=== PATIENT | male | born 1970 | race Caucasian/White ===

== ENCOUNTER 2021-03-15 04:11 | Emergency (ER) | payer MEDICAID, SELFPAY ==
[2021-03-15 04:14] VITALS: BP 144/98; PULSE 82; RESP 14; TEMP 36.6; O2SAT 100; BMI 24.4
--- NOTE | 2021-03-15 04:15 | XRR_ITS ---
PROCEDURE INFORMATION: Exam: XR Chest Exam date and time: 03/15/2021 4:15 AM Age: 50 years old Clinical indication: Patient HX: AMS. Unresponsive. Possible ETOH. Unable to obtain history. TECHNIQUE: Imaging protocol: XR of the chest. Views: 1 view. COMPARISON: CR Chest 1 view [id number] 11/14/2017 3:35 PM FINDINGS: Lungs: Unremarkable. No consolidation. Pleural spaces: Unremarkable. No pleural effusion. No pneumothorax. Heart/Mediastinum: Unremarkable. No cardiomegaly. Bones/joints: Unremarkable. XR/XR chest 1V portable [id number] IMPRESSION: No acute disease.
--- NOTE | 2021-03-15 04:15 | CTR_ITS ---
PROCEDURE INFORMATION: Exam: CT Head Without Contrast Exam date and time: 03/15/2021 4:15 AM Age: 50 years old Clinical indication: Altered mental status/memory loss; Patient HX: AMS. Unresponsive. Possible ETOH. TECHNIQUE: Imaging protocol: Computed tomography of the head without contrast. Radiation optimization: All CT scans at this facility use at least one of these dose optimization techniques: automated exposure control; mA and/or kV adjustment per patient size (includes targeted exams where dose is matched to clinical indication); or iterative reconstruction. COMPARISON: CR Cervical Spine AP/Lat* [id number] 11/14/2017 3:35 PM RADIATION DOSE METRICS: Total DLP (mGy-cm): 1127.79 FINDINGS: Brain: No acute infarct or hemorrhage. Cerebral ventricles: No ventriculomegaly. Paranasal sinuses: Mucous retention cyst in the right maxillary sinus. Mastoid air cells: Visualized mastoid air cells are clear. Bones/joints: No calvarial or skull base fracture. Soft tissues: Unremarkable. CT/CT head wo con* [id number] IMPRESSION: 1. No calvarial or skull base fracture. 2. No acute infarct or hemorrhage. Radiation Dose CTDIVOL = (mGy): DLP = 1127.79 (mGy-cm)
--- NOTE | 2021-03-15 04:16 | ECG_ITS ---
[facility] Test Date: 2021-03-15 Pat Name: Perez Galeano Department: Room: Gender: Male [employer] Supervisor: : [id number] Requested By: Qasim Velazquez Order Number: [id number] Reading MD: TETO BLACKWOOD Measurements Intervals [place] Rate: 82 P: 85 PA: 131 QRS: 78 QRSD: 90 T: 78 QT: 365 QTc: 428 Interpretive Statements SINUS RHYTHM RIGHT ATRIAL ENLARGEMENT [0.3mV P WAVE] POSSIBLE LEFT ATRIAL ENLARGEMENT [-0.1mV P WAVE IN V1/V2] No previous ECG available for comparison Electronically Signed On 03-16-2021 20:30:00 CDT by TETO BLACKWOOD [email or web address] regional medical [email or web address] Systemscleveland clinic [email or web address].[email or web address]/[id number]
[2021-03-15 04:18] VITALS: PULSE 82; RESP 16; O2SAT 99
[2021-03-15] MEDS: ondansetron 2 mg/ML SDV 2 mL 4 MG IVP (04:28)
[2021-03-15] MEDS: sodium chloride 0.9% 1,000 ML 999 ML IV (04:28)
--- NOTE | 2021-03-15 04:32 | ED_ITS ---
Documented by User: Qasim Velazquez MD 03/15/21 04:36 HPI - Nausea/Vomiting/Diarrhea General: Chief complaint: Nausea/Vomiting/Diarrhea Stated complaint: n/v/lethargic Time Seen by Provider: 03/15/21 04:15 Source: patient and EMS Mode of arrival: EMS Limitations: altered mental status History of Present Illness: HPI Narrative: 50-year-old male that was in a hotel with his girlfriend and she called EMS because he had became unresponsive with vomiting. EMS states they arrived there is multiple empty alcohol bottles in the room. He states he will wake to sternal rub. I did wake him up and he is able to tell me his name and the year and where he was at but he is lethargic. He has had no vomiting here. Denies any recent fevers. Review of Systems General: Reports: ROS unobtainable due to mental status Course Vital Signs: Vital signs: Vital Signs Temperature 97.8 F 03/15/21 04:14 Pulse Rate 86 03/15/21 08:23 Respiratory Rate 15 03/15/21 08:23 Blood Pressure 126/80 03/15/21 08:23 Pulse Oximetry 97 03/15/21 08:23 MDM - Nausea/Vomiting/Diarrhea Lab Data: Labs: Lab Results 03/15/21 03/15/21 03/15/21 Range/Units 04:59 04:59 04:59 WBC Cancelled Corrected WBC Cancelled RBC Cancelled Hgb Cancelled Hct Cancelled MCV Cancelled MCH Cancelled MCHC Cancelled RDW Cancelled Plt Count Cancelled MPV Cancelled Gran % Cancelled Neut % (Auto) Cancelled Lymph % (Auto) Cancelled [place] % (Auto) Cancelled Eos % (Auto) Cancelled Baso % (Auto) Cancelled Neut # (Auto) Cancelled Lymph # (Auto) Cancelled [place] # (Auto) Cancelled Eos # (Auto) Cancelled Baso # (Auto) Cancelled Absolute Gran (aut o) Cancelled Nucleated RBC % (a uto) Cancelled Nucleated RBCs # Cancelled PT (12.1-14.9) SECO NDS INR (0.8-1.2) Sodium Cancelled Potassium Cancelled Chloride Cancelled Carbon Dioxide Cancelled Anion Gap Cancelled BUN Cancelled Creatinine Cancelled GFR Calculation Cancelled Glucose Cancelled Calculated Osmolal ity Cancelled Calcium Cancelled Total Bilirubin Cancelled AST Cancelled ALT Cancelled Alkaline Phosphata se Cancelled Troponin T Baselin e Cancelled Total Protein Cancelled Albumin Cancelled Globulin Cancelled TSH Cancelled Urine Color (Yellow) Urine Appearance (CLEAR) Urine pH (5-7) Ur Specific Gravit y (1.005-1.030) Urine Protein (Negative) Urine Glucose (UA) (Normal) Urine Ketones (Negative) Urine Blood (Negative) Urine Nitrate (Negative) Urine Bilirubin (Negative) Urine Urobilinogen (Negative) mg/dL Ur Leukocyte Alicia ase (Negative) Urine Opiates Scre en (Negative) ng/mL Ur Barbiturates Sc reen (Negative) ng/mL Ur Phencyclidine S crn (Negative) ng/mL Ur Amphetamines Sc reen (Negative) ng/mL U Benzodiazepines Scrn (Negative) ng/mL Urine Cocaine Scre en (Negative) ng/mL U Marijuana (THC) Screen (Negative) ng/mL Ethyl Alcohol Cancelled 03/15/21 03/15/21 03/15/21 Range/Units 04:59 04:59 05:30 WBC Corrected WBC RBC Hgb Hct MCV MCH MCHC RDW Plt Count MPV Gran % Neut % (Auto) Lymph % (Auto) [place] % (Auto) Eos % (Auto) Baso % (Auto) Neut # (Auto) Lymph # (Auto) [place] # (Auto) Eos # (Auto) Baso # (Auto) Absolute Gran (aut o) Nucleated RBC % (a uto) Nucleated RBCs # PT 13.90 (12.1-14.9) SECO NDS INR 1.04 (0.8-1.2) Sodium Potassium Chloride Carbon Dioxide Anion Gap BUN Creatinine GFR Calculation Glucose Calculated Osmolal ity Calcium Total Bilirubin AST ALT Alkaline Phosphata se Troponin T Baselin e Total Protein Albumin Globulin TSH Urine Color Yellow (Yellow) Urine Appearance Clear (CLEAR) Urine pH 5 (5-7) Ur Specific Gravit y 1.025 (1.005-1.030) Urine Protein Neg (Negative) Urine Glucose (UA) Norm (Normal) Urine Ketones 1+ H (Negative) Urine Blood Neg (Negative) Urine Nitrate Negative (Negative) Urine Bilirubin 1+ H (Negative) Urine Urobilinogen Norm (Negative) mg/dL Ur Leukocyte Alicia ase Negative (Negative) Urine Opiates Scre en Positive H (Negative) ng/mL Ur Barbiturates Sc reen Negative (Negative) ng/mL Ur Phencyclidine S crn Negative (Negative) ng/mL Ur Amphetamines Sc reen Positive H (Negative) ng/mL U Benzodiazepines Scrn Negative (Negative) ng/mL Urine Cocaine Scre en Negative (Negative) ng/mL U Marijuana (THC) Screen Positive H (Negative) ng/mL Ethyl Alcohol 03/15/21 03/15/21 03/15/21 Range/Units 05:30 05:54 05:54 WBC 19.1 H Corrected WBC RBC 4.77 Hgb 14.5 Hct 47.3 MCV 99.2 H MCH 30.4 MCHC 30.7 RDW 13.9 Plt Count 321 MPV 9.2 Gran % Neut % (Auto) 83.1 Lymph % (Auto) 6.8 [place] % (Auto) 8.2 Eos % (Auto) 0.9 Baso % (Auto) 0.6 Neut # (Auto) 15.83 H Lymph # (Auto) 1.3 [place] # (Auto) 1.6 H Eos # (Auto) 0.2 Baso # (Auto) 0.1 Absolute Gran (aut o) Nucleated RBC % (a uto) 0 Nucleated RBCs # 0.0 PT (12.1-14.9) SECO NDS INR (0.8-1.2) Sodium 139 Potassium 4.8 Chloride 106 Carbon Dioxide 23 Anion Gap 14.8 BUN 22 H Creatinine 0.7 GFR Calculation 118.9 Glucose 95 Calculated Osmolal ity 291 Calcium 7.7 L Total Bilirubin 0.6 AST 12 ALT 12 Alkaline Phosphata se 69 Troponin T Baselin e 13 Total Protein 6.5 L Albumin 3.7 Globulin 2.8 TSH 0.63 Urine Color (Yellow) Urine Appearance (CLEAR) Urine pH (5-7) Ur Specific Gravit y (1.005-1.030) Urine Protein (Negative) Urine Glucose (UA) (Normal) Urine Ketones (Negative) Urine Blood (Negative) Urine Nitrate (Negative) Urine Bilirubin (Negative) Urine Urobilinogen (Negative) mg/dL Ur Leukocyte Alicia ase (Negative) Urine Opiates Scre en (Negative) ng/mL Ur Barbiturates Sc reen (Negative) ng/mL Ur Phencyclidine S crn (Negative) ng/mL Ur Amphetamines Sc reen (Negative) ng/mL U Benzodiazepines Scrn (Negative) ng/mL Urine Cocaine Scre en (Negative) ng/mL U Marijuana (THC) Screen (Negative) ng/mL Ethyl Alcohol < 10 EKG Data^: EKG 1: Attestation: I personally reviewed and interpreted this EKG as follows: EKG interpretation date: 03/15/21 EKG interpretation time: 04:29 Interpretation: Normal sinus rhythm heart rate [address] or T wave abnormalities qrs 90 QTC 404 Discharge Plan Discharge Patient Disposition: Home Clinical Impression: Nausea & vomiting Condition: Stable Prescriptions: New Zofran 4 mg tablet 4 mg PO Q6H PRN (Reason: nausea and vomiting) Qty: 20 RF: 0 Discharge Orders: Discharge ED (Routine); Ordered 03/15/21 Ordered By: Morris Santa Discharge Diet: Clear Liquid Discharge Activity: Resume usual activity Patient Instructions: Opioid Safety Sign Out Sign Out Data: Patient Sign Out occurred on 03/15/21 at 06:08. Patient's care was discussed, and care was transferred from to Morris Santa DO. Coding Level of Care Code ED Senior Sales Operations Analyst for [employer]g [employer]wd Documented by User: Morris Santa DO 03/15/21 08:25 HPI - Nausea/Vomiting/Diarrhea General: Chief complaint: Nausea/Vomiting/Diarrhea Stated complaint: n/v/lethargic Time Seen by Provider: 03/15/21 04:15 Course Vital Signs: Vital signs: Vital Signs Temperature 97.8 F 03/15/21 04:14 Pulse Rate 86 03/15/21 08:23 Respiratory Rate 15 03/15/21 08:23 Blood Pressure 126/80 03/15/21 08:23 Pulse Oximetry 97 03/15/21 08:23 MDM - Nausea/Vomiting/Diarrhea MDM Narrative: Medical decision making narrative: Nausea and vomiting improved drug screen positive. Improved with fluids. Will discharge home with Zofran avoid drug use clear liquid diet 24 to 48 hours return if has problems. Lab Data: Labs: Lab Results 03/15/21 03/15/21 03/15/21 Range/Units 04:59 04:59 04:59 WBC Cancelled Corrected WBC Cancelled RBC Cancelled Hgb Cancelled Hct Cancelled MCV Cancelled MCH Cancelled MCHC Cancelled RDW Cancelled Plt Count Cancelled MPV Cancelled Gran % Cancelled Neut % (Auto) Cancelled Lymph % (Auto) Cancelled [place] % (Auto) Cancelled Eos % (Auto) Cancelled Baso % (Auto) Cancelled Neut # (Auto) Cancelled Lymph # (Auto) Cancelled [place] # (Auto) Cancelled Eos # (Auto) Cancelled Baso # (Auto) Cancelled Absolute Gran (aut o) Cancelled Nucleated RBC % (a uto) Cancelled Nucleated RBCs # Cancelled PT (12.1-14.9) SECO NDS INR (0.8-1.2) Sodium Cancelled Potassium Cancelled Chloride Cancelled Carbon Dioxide Cancelled Anion Gap Cancelled BUN Cancelled Creatinine Cancelled GFR Calculation Cancelled Glucose Cancelled Calculated Osmolal ity Cancelled Calcium Cancelled Total Bilirubin Cancelled AST Cancelled ALT Cancelled Alkaline Phosphata se Cancelled Troponin T Baselin e Cancelled Total Protein Cancelled Albumin Cancelled Globulin Cancelled TSH Cancelled Urine Color (Yellow) Urine Appearance (CLEAR) Urine pH (5-7) Ur Specific Gravit y (1.005-1.030) Urine Protein (Negative) Urine Glucose (UA) (Normal) Urine Ketones (Negative) Urine Blood (Negative) Urine Nitrate (Negative) Urine Bilirubin (Negative) Urine Urobilinogen (Negative) mg/dL Ur Leukocyte Alicia ase (Negative) Urine Opiates Scre en (Negative) ng/mL Ur Barbiturates Sc reen (Negative) ng/mL Ur Phencyclidine S crn (Negative) ng/mL Ur Amphetamines Sc reen (Negative) ng/mL U Benzodiazepines Scrn (Negative) ng/mL Urine Cocaine Scre en (Negative) ng/mL U Marijuana (THC) Screen (Negative) ng/mL Ethyl Alcohol Cancelled 03/15/21 03/15/21 03/15/21 Range/Units 04:59 04:59 05:30 WBC Corrected WBC RBC Hgb Hct MCV MCH MCHC RDW Plt Count MPV Gran % Neut % (Auto) Lymph % (Auto) [place] % (Auto) Eos % (Auto) Baso % (Auto) Neut # (Auto) Lymph # (Auto) [place] # (Auto) Eos # (Auto) Baso # (Auto) Absolute Gran (aut o) Nucleated RBC % (a uto) Nucleated RBCs # PT 13.90 (12.1-14.9) SECO NDS INR 1.04 (0.8-1.2) Sodium Potassium Chloride Carbon Dioxide Anion Gap BUN Creatinine GFR Calculation Glucose Calculated Osmolal ity Calcium Total Bilirubin AST ALT Alkaline Phosphata se Troponin T Baselin e Total Protein Albumin Globulin TSH Urine Color Yellow (Yellow) Urine Appearance Clear (CLEAR) Urine pH 5 (5-7) Ur Specific Gravit y 1.025 (1.005-1.030) Urine Protein Neg (Negative) Urine Glucose (UA) Norm (Normal) Urine Ketones 1+ H (Negative) Urine Blood Neg (Negative) Urine Nitrate Negative (Negative) Urine Bilirubin 1+ H (Negative) Urine Urobilinogen Norm (Negative) mg/dL Ur Leukocyte Alicia ase Negative (Negative) Urine Opiates Scre en Positive H (Negative) ng/mL Ur Barbiturates Sc reen Negative (Negative) ng/mL Ur Phencyclidine S crn Negative (Negative) ng/mL Ur Amphetamines Sc reen Positive H (Negative) ng/mL U Benzodiazepines Scrn Negative (Negative) ng/mL Urine Cocaine Scre en Negative (Negative) ng/mL U Marijuana (THC) Screen Positive H (Negative) ng/mL Ethyl Alcohol 03/15/21 03/15/21 03/15/21 Range/Units 05:30 05:54 05:54 WBC 19.1 H Corrected WBC RBC 4.77 Hgb 14.5 Hct 47.3 MCV 99.2 H MCH 30.4 MCHC 30.7 RDW 13.9 Plt Count 321 MPV 9.2 Gran % Neut % (Auto) 83.1 Lymph % (Auto) 6.8 [place] % (Auto) 8.2 Eos % (Auto) 0.9 Baso % (Auto) 0.6 Neut # (Auto) 15.83 H Lymph # (Auto) 1.3 [place] # (Auto) 1.6 H Eos # (Auto) 0.2 Baso # (Auto) 0.1 Absolute Gran (aut o) Nucleated RBC % (a uto) 0 Nucleated RBCs # 0.0 PT (12.1-14.9) SECO NDS INR (0.8-1.2) Sodium 139 Potassium 4.8 Chloride 106 Carbon Dioxide 23 Anion Gap 14.8 BUN 22 H Creatinine 0.7 GFR Calculation 118.9 Glucose 95 Calculated Osmolal ity 291 Calcium 7.7 L Total Bilirubin 0.6 AST 12 ALT 12 Alkaline Phosphata se 69 Troponin T Baselin e 13 Total Protein 6.5 L Albumin 3.7 Globulin 2.8 TSH 0.63 Urine Color (Yellow) Urine Appearance (CLEAR) Urine pH (5-7) Ur Specific Gravit y (1.005-1.030) Urine Protein (Negative) Urine Glucose (UA) (Normal) Urine Ketones (Negative) Urine Blood (Negative) Urine Nitrate (Negative) Urine Bilirubin (Negative) Urine Urobilinogen (Negative) mg/dL Ur Leukocyte Alicia ase (Negative) Urine Opiates Scre en (Negative) ng/mL Ur Barbiturates Sc reen (Negative) ng/mL Ur Phencyclidine S crn (Negative) ng/mL Ur Amphetamines Sc reen (Negative) ng/mL U Benzodiazepines Scrn (Negative) ng/mL Urine Cocaine Scre en (Negative) ng/mL U Marijuana (THC) Screen (Negative) ng/mL Ethyl Alcohol < 10 Discharge Plan Discharge Patient Disposition: Home Clinical Impression: Nausea & vomiting Condition: Stable Prescriptions: New Zofran 4 mg tablet 4 mg PO Q6H PRN (Reason: nausea and vomiting) Qty: 20 RF: 0 Discharge Orders: Discharge ED (Routine); Ordered 03/15/21 Ordered By: Morris Santa Discharge Diet: Clear Liquid Discharge Activity: Resume usual activity Patient Instructions: Opioid Safety Sign Out Sign Out Data: Patient Sign Out occurred on 03/15/21 at 06:08. Patient's care was discussed, and care was transferred from to Morris Santa DO. Coding Level of Care Code ED Senior Sales Operations Analyst for Luis Benitez
[2021-03-15 05:11] LABS: Add Urine Microscopic? NO; Charge for UA Resulting for Rev
[2021-03-15 05:13] LABS: Bilirubin Urine 1+ (Negative); Blood Urine Neg (Negative); Glucose Urine UA Norm (Normal); Ketones Urine 1+ (Negative); Leukocyte Esterase Urine Negative (Negative); Nitrate Urine Negative (Negative); Protein Urine Neg (Negative); Specific Gravity, Urine 1.025 (1.005-1.030); Urine Appearance Clear (CLEAR); Urine Color Yellow (Yellow); Urobilinogen Urine Norm (Negative); pH Urine 5 (5-7)
[2021-03-15 05:22] LABS: Amphetamines Screen Urine Positive (Negative); Barbiturates Screen Urine Negative (Negative); Benzodiazepines Screen Urine Negative (Negative); Cocaine Screen Urine Negative (Negative); Opiate Screen Urine Positive (Negative); PCP Screen Urine Negative (Negative); THC Screen Urine Positive (Negative)
--- NOTE | 2021-03-15 05:25 | CTR_ITS ---
PROCEDURE INFORMATION: Exam: CT Abdomen And Pelvis With Contrast Exam date and time: 03/15/2021 5:25 AM Age: 50 years old Clinical indication: Vomiting TECHNIQUE: Imaging protocol: Computed tomography of the abdomen and pelvis with contrast. Total images: 228 Radiation optimization: All CT scans at this facility use at least one of these dose optimization techniques: automated exposure control; mA and/or kV adjustment per patient size (includes targeted exams where dose is matched to clinical indication); or iterative reconstruction. Contrast material: OMNI 300; Contrast volume: 95 ml; Contrast route: INTRAVENOUS (IV); COMPARISON: CR (CHEST, ) 03/15/2021 4:19 AM RADIATION DOSE METRICS: Total DLP (mGy-cm): 1270.31 FINDINGS: Lungs: Mild dependent atelectasis. Liver: Normal. No mass. Gallbladder and bile ducts: Normal. No calcified stones. No ductal dilation. Pancreas: Normal. No ductal dilation. Spleen: Normal. No splenomegaly. Adrenal glands: Normal. No mass. Kidneys and ureters: Normal. No hydronephrosis. Stomach and bowel: Well-formed stool distends the rectum but without evidence of rectal wall inflammation. Appendix: No evidence of appendicitis. Intraperitoneal space: Unremarkable. No free air. No significant fluid collection. Vasculature: Unremarkable. No abdominal aortic aneurysm. Lymph nodes: Unremarkable. No enlarged lymph nodes. Urinary bladder: The urinary bladder is significantly distended. Reproductive: Unremarkable as visualized. Bones/joints: Disc degeneration is most notable at L4/L5. Soft tissues: Unremarkable. Other findings: Moderate stool burden. CT/CT abdomen pelvis w con* [id number] IMPRESSION: 1. Moderate stool burden. 2. Well-formed stool distends the rectum but without evidence of rectal wall inflammation. 3. The urinary bladder is significantly distended. Radiation Dose CTDIVOL = (mGy): DLP = 1270.31 (mGy-cm)
[2021-03-15 05:44] LABS: Basophils # 0.1 10^3/uL (0.0-0.1); Basophils % 0.6 %; Eosinophils # 0.2 10^3/uL (0.0-0.8); Eosinophils % 0.9 %; Hematocrit 47.3 % (42.0-52.0); Hemoglobin 14.5 g/dL (11.7-16.6); Lymphocytes # 1.3 10^3/uL (0.8-4.8); Lymphocytes % 6.8 %; Mean Corpuscular HGB Conc 30.7 g/dL (30.0-36.0); Mean Corpuscular Hemoglobin 30.4 pg (28.0-34.0); Mean Corpuscular Volume 99.2 fL (80-94); Mean Platelet Volume 9.2 fL (7.4-10.4); Monocytes # 1.6 10^3/uL (0.2-0.9); Monocytes % 8.2 %; Neutrophils # 15.83 10^3/uL (1.8-7.7); Neutrophils % 83.1 %; Nucleated Red Blood Cells % 0 %; Platelet Count 321 10^3/cmm (130-400); Red Blood Count 4.77 10^6/uL (4.1-5.3); Red Cell Distribution Width 13.9 % (12.1-15.1); White Blood Count 19.1 10^3/uL (4.0-10.0)
[2021-03-15 05:55] LABS: INR 1.04 (0.8-1.2)
[2021-03-15 06:22] LABS: Troponin(5th) Baseline 13 ng/L (0-15)
[2021-03-15] MEDS: iohexol 300 mg/mL 100 mL Btl IV (06:25)
[2021-03-15 06:29] LABS: Alanine Aminotransferase 12 U/L (0-41); Albumin Level 3.7 g/dL (3.5-5.2); Alkaline Phosphatase 69 IU/L (40-130); Aspartate Amino Transferase 12 U/L (0-40); Blood Urea Nitrogen 22 mg/dL (6-20); Calcium 7.7 mg/dL (8.5-10.5); Carbon Dioxide 23 mmol/L (22-29); Chloride 106 mmol/L (98-107); Globulin 2.8 g/dL (1.3-4.6); Glomerular Filtration Rate 118.9 mL/min (90-130); Glucose 95 mg/dL (65-115); Osmolality Calculated 291 mOsm/kg (285-295); Sodium 139 mmol/L (136-145); Thyroid Stimulating Hormone 0.63 uIU/mL (0.27-4.20); Total Bilirubin 0.6 mg/dL (0.15-1.2); Total Protein 6.5 g/dL (6.6-8.7)
[2021-03-15 07:13] LABS: Alcohol Level < 10 mg/dL (0-10)
[2021-03-15 07:14] LABS: Anion Gap 14.8 (5-19); Potassium 4.8 mmol/L (3.5-5.1)
[2021-03-15 08:06] VITALS: BP 126/80; PULSE 86; RESP 15; O2SAT 97
[2021-03-15 08:23] VITALS: BP 126/80; PULSE 86; RESP 15; O2SAT 97
== END 2021-03-15 08:23 | disposition home or self-care (01) ==
PROVIDERS: Emergency Medicine; Emergency Provider Family Medicine
DX: R11.2 Nausea with vomiting, unspecified (principal)
CPT/HCPCS: 70450; 71045; 74177; 80053; 80306; 80307; 81003; 84443; 84484; 85025; 85610; 93005; 96374; 99284; J2405; J7030; Q9967